=== PATIENT | male | born 1965 | race Caucasian/White ===

== ENCOUNTER 2021-06-11 13:42 | Inpatient (IN) | payer OTHER ==
[~2021-06-11] VITALS: Ht 175.3 cm; Wt 90.5 kg
[2021-06-11 14:51] LABS: BASOPHIL 0.2 % (0-2); EOSINOPHIL 0 % (0-5); HCT 44.7 % (42.0-52.0); HGB 15.3 g/dl (13.2-18.0); LYMPHOCYTE 11.4 % (15-48); MCH 30.7 pg (25.0-31.0); MCHC 34.2 g/dL (32.0-36.0); MCV 89.6 fL (78.0-100.0); MPV 9.6 fL (6.0-9.5); NEUTROPHIL 77.6 % (41-80); NRBC 0; PLT 142 K/uL (150-400); RBC 4.99 M/uL (4.70-6.00); RDW 12.7 % (11.5-14.0); WBC 4.8 K/uL (4.0-10.5)
[2021-06-11 15:13] LABS: ALBUMIN 3.2 g/dL (3.4-5.0); BILIRUBIN - TOTAL 0.6 mg/dL (0.2-1.0); BUN/CREAT RATIO (CALC) 13.9 RATIO; CREATININE 1.15 mg/dL (0.67-1.17); GLOBULIN (CALCULATION) 3.7 g/dL; POTASSIUM 4.1 mmol/L (3.5-5.1); TOTAL PROTEIN 6.9 g/dL (6.4-8.2)
[2021-06-11 16:07] LABS: C-REACTIVE PROTEIN 5.3 mg/dL (<=0.90)
[2021-06-11] MEDS ORDERED: SERTRALINE HCL50 MG PO (20:04)
[2021-06-11] MEDS ORDERED: ATORVASTATIN CA20 MG PO (20:05)
[2021-06-12 05:06] LABS: BASOPHIL 0.3 % (0-2); EOSINOPHIL 0 % (0-5); HCT 47.7 % (42.0-52.0); HGB 16.2 g/dl (13.2-18.0); MCH 30.6 pg (25.0-31.0); MONOCYTE 7.9 % (0-12); MPV 9.6 fL (6.0-9.5); NEUTROPHIL 71.9 % (41-80); NRBC 0; PLT 146 K/uL (150-400); RDW 12.9 % (11.5-14.0); WBC 3.4 K/uL (4.0-10.5)
[2021-06-12 05:24] LABS: BILIRUBIN - TOTAL 0.6 mg/dL (0.2-1.0); BUN/CREAT RATIO (CALC) 17.5 RATIO; CREATININE 1.03 mg/dL (0.67-1.17); GLOBULIN (CALCULATION) 4.1 g/dL; POTASSIUM 4.3 mmol/L (3.5-5.1); TOTAL PROTEIN 7.1 g/dL (6.4-8.2)
[2021-06-13 07:09] LABS: BASOPHIL 0.1 % (0-2); EOSINOPHIL 0 % (0-5); HCT 44.7 % (42.0-52.0); HGB 15.3 g/dl (13.2-18.0); LYMPHOCYTE 6.5 % (15-48); MCH 30.7 pg (25.0-31.0); MCHC 34.2 g/dL (32.0-36.0); MCV 89.6 fL (78.0-100.0); MONOCYTE 7.3 % (0-12); MPV 9.8 fL (6.0-9.5); NEUTROPHIL 85.3 % (41-80); NRBC 0; PLT 180 K/uL (150-400); RBC 4.99 M/uL (4.70-6.00); RDW 13.1 % (11.5-14.0)
[2021-06-13 07:13] LABS: WBC 10.9 K/uL (4.0-10.5)
[2021-06-13 08:07] LABS: ALBUMIN 2.8 g/dL (3.4-5.0); BILIRUBIN - TOTAL 0.5 mg/dL (0.2-1.0); BUN/CREAT RATIO (CALC) 28.9 RATIO; CREATININE 0.97 mg/dL (0.67-1.17); POTASSIUM 4.3 mmol/L (3.5-5.1); TOTAL PROTEIN 5.8 g/dL (6.4-8.2)
[2021-06-14 05:59] LABS: BASOPHIL 0.1 % (0-2); EOSINOPHIL 0 % (0-5); HCT 42.9 % (42.0-52.0); HGB 14.4 g/dl (13.2-18.0); LYMPHOCYTE 6.3 % (15-48); MCH 30.6 pg (25.0-31.0); MCHC 33.6 g/dL (32.0-36.0); MCV 91.1 fL (78.0-100.0); MONOCYTE 8.7 % (0-12); MPV 9.7 fL (6.0-9.5); NEUTROPHIL 83.8 % (41-80); NRBC 0; PLT 205 K/uL (150-400); RBC 4.71 M/uL (4.70-6.00); WBC 10.4 K/uL (4.0-10.5)
[2021-06-14 06:18] LABS: ALBUMIN 2.6 g/dL (3.4-5.0); BILIRUBIN - TOTAL 0.5 mg/dL (0.2-1.0); BUN/CREAT RATIO (CALC) 27.3 RATIO; CREATININE 0.88 mg/dL (0.67-1.17); GLOBULIN (CALCULATION) 3.3 g/dL; POTASSIUM 4.5 mmol/L (3.5-5.1); TOTAL PROTEIN 5.9 g/dL (6.4-8.2)
--- NOTE | 2021-06-15 10:04 | NUR ---
06/15/21 02 at 2L has been delivered by [facility] per patient choice. - Report given to MS Jae Paez
[2021-06-15] MEDS ORDERED: DEXAMETHASONE 2M2 MG PO (15:33)
[2021-06-15] MEDS ORDERED: VENTOLIN HFA IN18 GM INH ×2 (15:33→15:40)
[2021-06-15] MEDS ORDERED: DECADRON6 MG PO (15:40)
== END 2021-06-15 16:30 | disposition home or self-care (01) | DRG 177 ==
LOC: FER 13:42 → FMS 16:54 → FER 16:54 → FMS 06-15 16:30
PROVIDERS: Emergency Medicine; ADMIT Family Medicine
PROC: 8E0ZXY6 Isolation (ICD-10-PCS; principal; 2021-06-11)
PROC: XW033E5 Introduction of Remdesivir Anti-infective into Peripheral Vein, Percutaneous Approach, New Technology Group 5 (ICD-10-PCS; 2021-06-11)
DX: U07.1 COVID-19 (principal); J12.82 Pneumonia due to coronavirus disease 2019; J96.01 Acute respiratory failure with hypoxia; E87.1 Hypo-osmolality and hyponatremia; N17.9 Acute kidney failure, unspecified; D69.6 Thrombocytopenia, unspecified; R73.9 Hyperglycemia, unspecified; F32.9 Major depressive disorder, single episode, unspecified; E78.5 Hyperlipidemia, unspecified; Z79.899 Other long term (current) drug therapy
CPT/HCPCS: 36415; 36600; 71045; 71250; 71275; 80053; 82728; 82803; 83036; 83615; 83880; 85025; 85379; 86140; 94010; 94640; 94760; 94762; C9399; J1100; J1650; J7050; J8540; Q9967; U0002